=== PATIENT | male | born 2000 | race Caucasian/White ===

== ENCOUNTER 2019-04-16 22:20 | Emergency (ER) | payer SELFPAY ==
[~2019-04-16] VITALS: Ht 182.9 cm; Wt 97.5 kg
--- NOTE | 2019-04-16 23:06 | ED EENT ---
History of Present Illness General Chief Complaint: Oral/Throat Problems Stated Complaint: EAR ACHE, FEVER, SORE THROAT Source: patient Exam Limitations: no limitations History of Present Illness Date Seen by Provider: Apr 16, 2019 Time Seen by Provider: 22:45 Initial Comments Patient presents to ER by private conveyance with chief complaint of several days of right ear feeling under pressure, sore throat, right maxillary pain nausea without vomiting and diarrhea. No fever. No history of asthma COPD. Does not smoke. Allergies and Home Medications Allergies Coded Allergies: No Known Drug Allergies (Unverified , 04/16/19) Patient Home Medication List Home Medication List Reviewed: Yes Review of Systems Review of Systems Constitutional: No chills, No fever; malaise Eyes: Denies Blindness, Denies Blurred Vision, Denies Drainage Ears: See HPI; Denies Dizziness; Pain Nose: see HPI, congestion Mouth: denies clots, denies loose teeth Throat: pain; denies swelling Respiratory: No cough, No short of breath Past Yagnphv-Wyrgqi-Vynnun Hx Patient Social History Alcohol Use: Occasionally Uses Recreational Drug Use: No Smoking Status: Never a Smoker Recent Foreign Travel: No Contact w/Someone Who Travel: No Recent Hopitalizations: No Seasonal Allergies Seasonal Allergies: No Past Medical History Surgeries: No Respiratory: No Cardiac: No Neurological: No Genitourinary: No Gastrointestinal: No Musculoskeletal: No Endocrine: No HEENT: No Cancer: No Psychosocial: No Integumentary: No Physical Exam Height, Weight, BMI Height: '" Weight: lbs. oz. kg; BMI Method: General Appearance: WD/WN, no apparent distress Eyes: bilateral eye normal inspection, bilateral eye PERRL, bilateral eye EOMI Ears: bilateral ear auricle normal, bilateral ear canal normal, bilateral ear TM normal Nose: normal inspection, discharge Mouth/Throat: tonsillar exudate (mild), tonsillar swelling Neck: non-tender, full range of motion, supple, normal inspection Cardiovascular: normal peripheral pulses, regular rate, rhythm Respiratory: no respiratory distress, no accessory muscle use Neurologic/Psychiatric: alert, normal mood/affect, oriented x 3 Skin: normal color, warm/dry Progress/Results/Core Measures Results/Orders My Orders Orders - CHRIS BENAVIDES Rapid Strep A Screen (04/16/19 22:59) Progress Progress Note : Time: 23:02 Progress Note Flonase, Zyrtec, Mucinex, saltwater gargles. He has some maxillary sinus tenderness so we'll start him on Augmentin 10 days. Departure Impression Primary Impression: Gastroenteritis/colitis, infectious Additional Impressions: Maxillary sinusitis, acute Qualified Codes: J01.00 - Acute maxillary sinusitis, unspecified Right otitis media with effusion Disposition: HOME, SELF-CARE Condition: Stable Departure-Patient Inst. Decision time for Depature: 23:04 Referrals: NO,LOCAL PHYSICIAN (PCP) Primary Care Physician Patient Instructions: Sinusitis, Adult (DC), Serous Otitis Media (DC), Diarrhea in Adolescents and Adults Add. Discharge Instructions: Drink lots of fluids and use salt water gargles to help with the swelling in her throat. Tylenol and Motrin can be helpful for the body aches and pain. Zofran 1 tablet every 6 hours as needed for nausea or vomiting. Continue Pepto-Bismol or use Imodium to control your diarrhea as necessary. Augmentin 1 tablet twice a day with food for the next 10 days for your maxillary sinusitis. Flonase as well as Zyrtec to help relieve the pressure in your middle ear. All discharge instructions reviewed with patient and/or family. Voiced understanding. Scripts Ondansetron (Ondansetron Odt) 4 Mg Tab.rapdis 4 MG PO Q6H PRN for NAUSEA/VOMITING, #8 TAB 0 Refills Prov: CHRIS BENAVIDES 04/16/19 Amoxicillin/Potassium Clav (Augmentin 875-125 Tablet) 1 Each Tablet 1 EACH PO BID for 7 Days, #14 TAB 0 Refills Prov: CHRIS BENAVIDES 04/16/19 CHRIS BENAVIDES Apr 16, 2019 23:06
[2019-04-16] MEDS ORDERED: ONDA4TAB11 PO (23:07)
[2019-04-16] MEDS ORDERED: AMOX-358 PO (23:07)
[2019-04-16 23:30] VITALS: BP 122/74
== END 2019-04-16 23:31 | disposition home or self-care (01) ==
LOC: EDUNIT# 22:20 → ER 22:23
DX: A09 Infectious gastroenteritis and colitis, unspecified (principal); J01.00 Acute maxillary sinusitis, unspecified; H65.91 Unspecified nonsuppurative otitis media, right ear
CPT/HCPCS: 87430; 99284